=== PATIENT | male | born 1935 | race Caucasian/White ===

== ENCOUNTER → 2016-03-24 | Outpatient (CLI) | payer OTHER ==
[~2016-03-24] MED LIST: BIOFTAB30; CHOL100040; CLB/200 PO; IRON; LEVO50TA PO; MULT-506 PO; TAMS0.4C59 PO; [UNRECOGNIZED DRUG - CODE] PO
[2016-03-24 12:21] LABS: BASO % 0.9 %; BASO ABS # 0.05 K/uL (0-0.2); COMPLETE YES; EOS % 1.3 %; HEMATOCRIT 43.9 % (42-52); IG% 0.2 %; LYMPH % 26.2 %; LYMPH ABS # 1.46 K/uL (1.2-3.4); MEAN CELL VOLUME 92.8 fL (80-100); MEAN CORPUSCULAR HEMOGLOBIN 31.9 pg (25-34); MEAN CORPUSCULAR HGB CONC 34.4 g/dl (32-36); MEAN PLATELET VOLUME 9.6 fL (7.4-10.4); MONO % 8.3 %; NEUT % 63.1 %; PLATELET COUNT 256 K/uL (130-400); RED BLOOD COUNT 4.73 M/uL (4.7-6.1); WHITE BLOOD COUNT 5.57 K/uL (4.8-10.8)
[2016-03-24 12:48] LABS: ALT/SGPT 20 U/L (12-78); AST/SGOT 15 U/L (15-37); BLOOD UREA NITROGEN 20 mg/dl (7-18); BUN/CREATININE RATIO 16.3 (10-20); CALCIUM 9.2 mg/dl (8.5-10.1); CARBON DIOXIDE 29 mmol/L (21-32); CHLORIDE 103 mmol/L (98-107); GLUCOSE 89 mg/dl (70-99); POTASSIUM 4.2 mmol/L (3.5-5.1); SODIUM 139 mmol/L (136-145)
[2016-03-24 13:00] LABS: ALKALINE PHOSPHATASE 70 U/L (45-117); TOTAL IRON BINDING CAPACITY 339 mcg/dl (250-450)
[2016-03-24 14:14] LABS: LYME DISEASE AB IGG NEG (NEG)
[2016-03-24 14:15] LABS: LYME DISEASE AB IGM NEG (NEG)
--- NOTE | 2016-03-31 08:47 | CODING QUERY MEDICAL NECESSITY ---
SUPPORTING DIAGNOSIS NEEDED A supporting diagnosis is required for the test/procedure performed on this patient in order for us to be reimbursed by the patient's insurance. Please provide a supporting diagnosis for the following test/procedure listed below next to the test name along with your signature. *If there is no additional diagnosis for this patient that would support the following test/procedure please document that below next to the test/procedure. Test(s)/Procedure(s) that require a supporting diagnosis: DOS 03/24 * Vitamin B12 DIAGNOSIS: * Iron DIAGNOSIS: Provider Signature: Date: Thank you Bianca Aldridge [facility] Information Management Once completed, please kindly fax back to [phone] For questions please call [phone]
== END | disposition home or self-care (01) ==
LOC: C.LAB 10:54
PROVIDERS: ATTEND Family Medicine
DX: R53.83 Other fatigue (principal); D51.9 Vitamin B12 deficiency anemia, unspecified; D50.9 Iron deficiency anemia, unspecified

== ENCOUNTER → 2016-04-13 | Outpatient (CLI) | payer OTHER | END | disposition home or self-care (01) | LOC: C.LABSPEC 15:03 | PROVIDERS: ATTEND Family Medicine | DX: N39.0 Urinary tract infection, site not specified (principal) ==

== ENCOUNTER → 2016-04-16 | Outpatient (CLI) | payer OTHER ==
--- NOTE | 2016-04-16 10:43 | DIAGNOSTIC IMAGING REPORT ---
KUB CLINICAL HISTORY: Urethritis. Hematuria. FINDINGS: 2 AP supine abdominal radiographs are correlated with abdominal CT dated 01/08/2007. There is a nonobstructed abdominal bowel gas pattern. No evidence of intraperitoneal free air is seen on these supine views. There is moderate colonic fecal retention. There is no radiographic evidence of nephrolithiasis. Large pelvic phleboliths are similar to previous. A surgical clip is noted in the right lower quadrant. The skeletal structures are osteopenic. There is moderate lumbosacral spondylosis. IMPRESSION: 1. There is no radiographic evidence of nephrolithiasis. 2. Nonobstructed abdominal bowel gas pattern noting moderate colonic fecal retention. Electronically signed by: José Miguel Corona M.D. 04/16/2016 10:41 AM Dictated Date/Time: 04/16/2016 10:40 AM
--- NOTE | 2016-04-16 11:01 | DIAGNOSTIC IMAGING REPORT ---
RENAL ULTRASOUND HISTORY: URETHRITIS; HEMATURIA, PT WENT TO RAD FIRST COMPARISON: KUB 04/16/2016. Abdomen and pelvis CT 01/08/2007. FINDINGS: Right kidney: 10.2 cm. No hydronephrosis. Normal corticomedullary differentiation. Mild cortical thinning. Left kidney: 10.9 cm. No hydronephrosis. Normal corticomedullary differentiation. Mild cortical thinning. Bladder: No bladder wall thickening. The prostate is mildly enlarged. IMPRESSION: Mild bilateral cortical renal thinning which is likely age-related. Otherwise, normal renal ultrasound Electronically signed by: Bo Juárez M.D. 04/16/2016 11:00 AM Dictated Date/Time: 04/16/2016 10:58 AM
== END | disposition home or self-care (01) ==
LOC: C.ULTR 10:02
PROVIDERS: ATTEND Family Medicine
DX: N34.2 Other urethritis (principal); R31.9 Hematuria, unspecified; K59.00 Constipation, unspecified

== ENCOUNTER → 2016-07-31 | Outpatient (CLI) | payer OTHER ==
[~2016-07-31] MED LIST changes: -IRON; -TAMS0.4C59 PO
[2016-07-31 09:42] LABS: BASO % 1.1 %; BASO ABS # 0.06 K/uL (0-0.2); COMPLETE YES; HEMATOCRIT 42.6 % (42-52); IG% 0.4 %; LYMPH % 26.1 %; LYMPH ABS # 1.43 K/uL (1.2-3.4); MEAN CELL VOLUME 94.9 fL (80-100); MEAN CORPUSCULAR HGB CONC 32.6 g/dl (32-36); MEAN PLATELET VOLUME 9.3 fL (7.4-10.4); MONO % 6.2 %; NEUT % 64.2 %; PLATELET COUNT 288 K/uL (130-400); RED BLOOD COUNT 4.49 M/uL (4.7-6.1); WHITE BLOOD COUNT 5.48 K/uL (4.8-10.8)
[2016-07-31 09:54] LABS: ALT/SGPT 24 U/L (12-78); AST/SGOT 17 U/L (15-37); BLOOD UREA NITROGEN 17 mg/dl (7-18); BUN/CREATININE RATIO 13.2 (10-20); CARBON DIOXIDE 29 mmol/L (21-32); CHLORIDE 106 mmol/L (98-107); CHOLESTEROL 196 mg/dl (0-200); GLUCOSE 89 mg/dl (70-99); POTASSIUM 4.1 mmol/L (3.5-5.1); SODIUM 141 mmol/L (136-145); TRIGLYCERIDES 138 mg/dl (0-150); URIC ACID 7.1 mg/dl (2.6-7.2); VERY LOW DENSITY LIPOPROT CALC 28 mg/dl
[2016-07-31 09:58] LABS: ESTIMATED AVERAGE GLUCOSE 103 mg/dl; HA1C FLAG Normal (Normal)
[2016-07-31 10:03] LABS: ALB/GLOB RATIO 1.1 (0.9-2); ALKALINE PHOSPHATASE 73 U/L (45-117); CHOLESTEROL/HDL RATIO 3.8; HDL CHOLESTEROL 51 mg/dl; LDL CHOLESTEROL CALCULATED 117 mg/dl; TOTAL IRON BINDING CAPACITY 331 mcg/dl (250-450)
[2016-07-31 10:06] LABS: CALCIUM 9.4 mg/dl (8.5-10.1)
== END | disposition home or self-care (01) ==
LOC: C.LAB 08:15
PROVIDERS: ATTEND Family Medicine
DX: R73.09 Other abnormal glucose (principal); E55.9 Vitamin D deficiency, unspecified; D51.9 Vitamin B12 deficiency anemia, unspecified; E78.9 Disorder of lipoprotein metabolism, unspecified; R53.83 Other fatigue; N40.0 Benign prostatic hyperplasia without lower urinary tract symptoms

== ENCOUNTER → 2017-06-03 | Outpatient (CLI) | payer OTHER ==
[2017-06-03 09:34] LABS: BASO % 0.9 %; BASO ABS # 0.05 K/uL (0-0.2); EOS % 1.8 %; HEMATOCRIT 38.6 % (42-52); HEMOGLOBIN 12.9 g/dL (14.0-18.0); IG# 0.01 K/uL (0.00-0.02); LYMPH ABS # 1.43 K/uL (1.2-3.4); MEAN CELL VOLUME 90.2 fL (80-100); MEAN CORPUSCULAR HEMOGLOBIN 30.1 pg (25-34); MEAN CORPUSCULAR HGB CONC 33.4 g/dl (32-36); MEAN PLATELET VOLUME 9.1 fL (7.4-10.4); MONO % 8.7 %; MONO ABS # 0.48 K/uL (0.11-0.59); NEUT % 62.4 %; NEUT ABS # 3.43 K/uL (1.4-6.5); PLATELET COUNT 280 K/uL (130-400); RED CELL DISTRIBUTION WIDTH CV 14.5 % (11.5-14.5); RED CELL DISTRIBUTION WIDTH SD 47.4 fL (36.4-46.3)
[2017-06-03 09:59] LABS: ALBUMIN 3.5 gm/dl (3.4-5.0); ALT/SGPT 23 U/L (12-78); AST/SGOT 17 U/L (15-37); BLOOD UREA NITROGEN 14 mg/dl (7-18); CALCIUM 8.8 mg/dl (8.5-10.1); CARBON DIOXIDE 28 mmol/L (21-32); CHOLESTEROL 178 mg/dl (0-200); CREATININE 1.09 mg/dl (0.60-1.40); GLUCOSE 89 mg/dl (70-99); POTASSIUM 3.7 mmol/L (3.5-5.1); SODIUM 138 mmol/L (136-145); URIC ACID 6.3 mg/dl (2.6-7.2)
[2017-06-03 10:03] LABS: HEMOGLOBIN A1C 5.2 % (4.5-5.6)
[2017-06-03 10:08] LABS: ALKALINE PHOSPHATASE 72 U/L (45-117); LDL CHOLESTEROL CALCULATED 103 mg/dl; TRANSFERRIN 274 mg/dl (200-360)
== END | disposition home or self-care (01) ==
LOC: C.LAB 08:02
PROVIDERS: ATTEND Family Medicine
DX: E88.81 Metabolic syndrome and other insulin resistance (principal); E55.9 Vitamin D deficiency, unspecified; D51.9 Vitamin B12 deficiency anemia, unspecified; E78.9 Disorder of lipoprotein metabolism, unspecified; R53.83 Other fatigue

== ENCOUNTER 2019-07-10 10:25 | Inpatient (IN) ==
--- NOTE | 2019-07-10 10:50 | Emergency Department Note ---
Impression & Plan Pulmonary air embolism, DELANEY (dyspnea on exertion) ED Provider Note NAME: CHRISTINA BRICE JR AGE: 84 SEX: M : 1935 ARRIVES VIA: Walk-In INFORMANT: Patient, ED PROVIDER(S): Bird Banks MD Chief Complaint: Shortness of breath HPI: Patient does relate that he has shortness of breath, which began yesterday. He described it as exertional while he was using a push mower. 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 This did dissipate after some time but it did take a while. The patient is a prior history of PE and was referred here by his PCP today. Patient denies any cough, leg swelling. Patient does not present with c ough, fevers, chills, coronavirus contacts, coronavirus testing, or recent travel. The patient has worked as a volunteer here in the emergency department but has not done so since the restrictions. This has been greater than 2 weeks. The patient states he did have a little bit of burning in his chest. Nonradiating. Not exertional. The patient denies any weight gain or leg swelling. The patient does not take any current blood thinners at this time. Non-smoker and never smoker. ROS: See HPI for pertinent positives and negatives. A total of 10 systems were reviewed and otherwise negative. Past medical history: See below Surgical history: See below Social history: See below Physical Exam: GENERAL: Well appearing, well nourished, NAD, non-toxic. Wearing a mask. EYE EXAM: Normal conjunctiva. PERRL, no anisocoria and EOM's grossly intact w/o pain. NECK: Supple, no nuchal rigidity, no adenopathy, non-tender. No signs of meningismus. LUNGS: Clear to auscultation. Normal chest wall mechanics. HEART: NSR, no MRG. ABDOMEN: Abdomen soft, non-tender, normo-active bowel sounds, no masses, no rebound or guarding. BACK: No CVA TTP. SKIN: No rashes and no bruising. UPPER EXTREMITIES: Upper extremities are grossly normal. LOWER EXTREMITIES: Grossly normal, no edema. NEURO EXAM: A&O x3, cranial nerves II-XII grossly intact, normal speech, moves all 4 extremities on command w/o issue. Differential diagnoses: Reactive airway disease, pneumonia, pneumothorax, COPD, CHF, infections, cardiac ischemia, pulmonary embolism, musculoskeletal, gastrointestinal, as well as other pathologies. Course: Patient was seen and evaluated the bedside. A full history and physical exam was performed. EKG: Sinus with sinus arrhythmia, rate of 63, wide QRS, left axis deviation, T WI in lead III potentially V3 without overt ST changes at this time. Imaging Studies: Radiology results as stated below per my review in the radiologist's interpretation: CT angio chest PE protocol CLINICAL HISTORY: 84 years-old Male presenting with shortness of breath, clinical concern for pulmonary embolus. TECHNIQUE: Multidetector CT angiography of the chest was performed after administration of intravenous contrast. 3-D volumetric and/or maximum intensity projection (MIP) images were subsequently reconstructed for review. IV contrast: 120 mL of Optiray 320. One or more dose lowering techniques were used consistent with the principles of ALARA (as low as reasonably achievable), including autom atic exposure control, mA or kV adjustment to individual patient size, and/or use of iterative reconstruction. COMPARISON: 05/16/2007. CT DOSE (mGy.cm): The estimated cumulative dose is 541.10 mGycm. FINDINGS: Protection Agent topogram: Unremarkable. Pulmonary vasculature: The study is adequate for assessment of the pulmonary vascular tree. Extensive acute pulmonary emboli in segmental and subsegmental pulmonary arteries involving all 5 lobes. Main pulmonary artery is not enlarged. No flattening of the interventricular septum. No intracardiac filling defect. No reflux of contrast into the hepatic veins. Remaining chest: Soft tissues: Normal thyroid and thoracic inlet. No axillary, supraclavicular, mediastinal, or hilar lymphadenopathy. Atherosclerosis of the aorta. Multichamber enlargement of the heart. Coronary artery and aortic valve calcification. No pericardial or pleural effusion. Upper abdomen normal. Lungs and airways: No pneumothorax. Mild diffuse bronchial wall thickening. Pulmonary arteries are not significantly enlarged relative to adjacent bronchi. No interlobular septal thickening. Minimal dependent changes likely atelectasis. Solid polygonal peripheral 5 mm nodule in the right middle lobe, unchanged. No other focal infiltrate. Musculoskeletal: Degenerative changes of the spine. IMPRESSION: 1. Extensive acute pulmonary emboli throughout all 5 lobes involving segmental and subsegmental pulmonary arteries. No CT evidence of right heart strain or pulmonary infarct. The report will be called/faxed according to standard departmental protocol for a critical finding. ACT 112: Negative or not required by law. Electronically signed by: Delroy Walsh M.D. 07/10/2019 11:47 AM Dictated: 07/10/19 1142 Transcribed: 07/10/19 1142 XR chest 1V portable HISTORY: 84 years-old Male Dyspnea acute shortness of breath COMPARISON: CTA of the chest of same day TECHNIQUE: Portable AP view of the chest FINDINGS: Cardiac silhouette is enlarged, unchanged. No pneumothorax, pleural effusion, overt pulmonary edema or airspace consolidation typical for pneumonia. Mild left hemidiaphragmatic elevation. Degenerative changes of the spine. Calcified plaque of the thoracic aortic arch. IMPRESSION: Cardiomegaly without acute process. ACT 112: Negative or not required by law. The above report was generated using voice recognition software. It may contain grammatical, syntax or spelling errors. Electronically signed by: Sam Suero M.D. 07/10/2019 11:46 AM Dictated: 07/10/19 1145 Transcribed: 07/10/19 1145 Cardiac monitoring: An order was placed for continuous cardiac monitoring. The monitor shows a rate of 71 with sinus rhythm. MDM: Patient does present with concern for exertional dyspnea. Patient does not present with cough, fevers, chills, coronavirus contacts, coronavirus testing, or recent travel. Patient did have blood work completed along with [id number] BMP and CT of the chest. Patient also did have a troponin obtaine d along with EKG. Patient does not have any symptoms at rest. No active chest pain at this time. Patient has normal white count trace anemia. The patient's kidney function is unremarkable. Patient's troponin is 0.025. Patient's chest x-ray shows cardiomegaly without acute process. Patient CT angiography does show that the patient does have extensive pulmonary emboli without any obvious right-sided heart strain. I did update the patient. Patient is asymptomatic currently at rest. The patient was subsequently admitted to the medicine service. I did speak with Cindi BELTRÁN and the patient will be admitted on under Dr. Ankur Torres physician group hospitalist. Critical Care: I have personally spent 70 minutes of critical care time in direct management of this patient. This includes bedside care, interpretation of diagnostic studies, and testing, discussion with consultants, patient, and family members, and other require inpatient management activities. This 70 minutes is in excess of all separately billable procedures. Past Med/Surg History Medical History Anemia IRON INFUSION EVERY 2 MONTHS Arthritis (Acute) Blood dyscrasia (Acute) HHT Cancer MOHS PROCEDURE ON NOSE Hypothyroidism Psoriasis (Acute) Psoriatic arthritis Pulmonary embolism (Acute) 2010? Synovial cyst (Acute) Thrombophlebitis (Acute) Surgical History History of adenoidectomy History of colonoscopy History of herniorrhaphy RT/LEFT INGUINAL HERNIA History of tonsillectomy History of tooth extraction Social History Preferred Language: Jordanian Communication Ability: Effective Baggage Inspector Required: No Beliefs That Will Affect Care: None Current Living Situation: Family Current Living Situation Comment: BROTHER LIVES WITH PT Feels Safe at Home: Yes Smoking Status: Never smoker Second Hand Exposure: No ; Hx Alcohol Use: Yes Alcohol type: wine Hx Substance Use: No Allergies Allergies Allergy/AdvReac Type Severity Reaction Status Date / Time No Known Allergies Allergy Verified 07/10/19 12:17 Home Meds Home Medications Medication Instructions Recorded Confirmed Proaxil 2 cap PO DAILY 01/05/18 07/10/19 Vitamin D3 2,000 unit PO DAILY #0 01/05/18 07/10/19 celecoxib [Celebrex] 200 mg PO BID 01/05/18 07/10/19 ferrous sulfate [iron] 325 mg PO DAILY 01/05/18 07/10/19 glucosamine-chondroitin 1 tab PO BID 01/05/18 07/10/19 levothyroxine [Synthroid] 125 mcg PO QAM 01/05/18 07/10/19 multivitamin 1 tab PO DAILY 01/05/18 07/10/19 iron heme polypeptide [Proferrin 12 mg PO DAILY 02/28/19 07/10/19 ES] Results & Data (ED) Vital Signs Vital Signs - 24 hr 07/10/19 10:35 Temperature 36.8 C Temperature Source Oral Pulse Rate 71 Respiratory Rate 16 Blood Pressure 148/74 H Blood Pressure Mean 98 Pulse Oximetry 94 Oxygen Delivery Method Room Air Sepsis Recent Fever Within 48 Hours No Sepsis New/Unexplained Change in Mental Status No Sepsis Action Taken by Nursing No Action Required Home Medications Current Medication List: was personally reviewed by me Laboratory Data Attestation: I reviewed the patient's lab results. Result diagrams: 07/10/19 11:00 07/10/19 11:00 Lab Results 07/10/19 07/10/19 07/10/19 Range/Units 11:00 11:00 11:00 WBC 6.87 (4.8-10.8) K/uL RBC 4.51 L (4.7-6.1) M/uL Hgb 12.3 L (14.0-18.0) g/dL POC Hgb (14.0-18.0) g/dl Hct 38.6 L (42-52) % POC Hct (42-52) % MCV 85.6 (80-100) fL MCH 27.3 (25-34) pg MCHC 31.9 L (32-36) g/dL RDW Std Deviation 52.6 H (36.4-46.3) fL RDW Coeff of Tatiana 16.8 H (11.5-14.5) % Plt Count 230 (130-400) K/uL MPV 9.0 (7.4-10.4) fL Immature Gran % (Auto) 0.1 % Neut % (Auto) 70.8 % Lymph % (Auto) 19.5 % [place] % (Auto) 8.4 % Eos % (Auto) 0.6 % Baso % (Auto) 0.6 % Immature Gran # (Auto) 0.01 (0.00-0.02) K/uL Neut # (Auto) 4.86 (1.4-6.5) K/uL Lymph # (Auto) 1.34 (1.2-3.4) K/uL [place] # (Auto) 0.58 (0.11-0.59) K/uL Eos # (Auto) 0.04 (0-0.5) K/uL Baso # (Auto) 0.04 (0-0.2) K/uL PT 10.6 (9.0-12.0) Seconds INR 1.0 (0.9-1.1) APTT 28.4 (21.0-31.0) Seconds PTT Ratio 1.0 POC Sodium (135-144) mmol/L Sodium 137 (136-145) mmol/L POC Potassium (3.3-5.0) mmol/L Potassium 4.2 (3.5-5.1) mmol/L POC Chloride (101-112) mmol/L Chloride 106 (98-107) mmol/L Carbon Dioxide 25 (21-32) mmol/L POC Total CO2 (24-31) mmol/L Anion Gap 6.0 (3-11) POC Anion Gap (16-25) mmol/L POC BUN (7-18) mg/dl BUN 19 H (7-18) mg/dl Creatinine 1.31 (0.6-1.4) mg/dl POC Creatinine (0.6-1.3) mg/dl Est Cr Clr Drug Dosing 45.3 ml/min Est GFR ( Amer) 57.1 Est GFR (Non-Af Amer) 49.3 BUN/Creatinine Ratio 14.1 (10-20) Glucose 99 (70-99) mg/dl POC Glucose (other) (70-99) mg/dl Calcium 8.8 (8.5-10.1) mg/dl POC Ioniz Calcium Whit (1.12-1.32) mmol/l Magnesium 2.1 (1.8-2.4) mg/dl Total Bilirubin 0.4 (0.2-1) mg/dl AST 16 (15-37) U/L ALT 19 (12-78) U/L Alkaline Phosphatase 81 (45-117) U/L Troponin I 0.025 (0-0.045) ng/ml NT-Pro-B Natriuret Pep 219 (0-1800) pg/ml Total Protein 7.5 (6.4-8.2) gm/dl Albumin 3.7 (3.4-5.0) gm/dl Globulin 3.8 (2.5-4.0) gm/dl Albumin/Globulin Ratio 1.0 (0.9-2) /01/18 Range/Units 11:06 WBC (4.8-10.8) K/uL RBC (4.7-6.1) M/uL Hgb (14.0-18.0) g/dL POC Hgb 13.6 L (14.0-18.0) g/dl Hct (42-52) % POC Hct 40 L (42-52) % MCV (80-100) fL MCH (25-34) pg MCHC (32-36) g/dL RDW Std Deviation (36.4-46.3) fL RDW Coeff of Tatiana (11.5-14.5) % Plt Count (130-400) K/uL MPV (7.4-10.4) fL Immature Gran % (Auto) % Neut % (Auto) % Lymph % (Auto) % [place] % (Auto) % Eos % (Auto) % Baso % (Auto) % Immature Gran # (Auto) (0.00-0.02) K/uL Neut # (Auto) (1.4-6.5) K/uL Lymph # (Auto) (1.2-3.4) K/uL [place] # (Auto) (0.11-0.59) K/uL Eos # (Auto) (0-0.5) K/uL Baso # (Auto) (0-0.2) K/uL PT (9.0-12.0) Seconds INR (0.9-1.1) APTT (21.0-31.0) Seconds PTT Ratio POC Sodium 138 (135-144) mmol/L Sodium (136-145) mmol/L POC Potassium 4.4 (3.3-5.0) mmol/L Potassium (3.5-5.1) mmol/L POC Chloride 104 (101-112) mmol/L Chloride (98-107) mmol/L Carbon Dioxide (21-32) mmol/L POC Total CO2 23 L (24-31) mmol/L Anion Gap (3-11) POC Anion Gap 16.0 (16-25) mmol/L POC BUN 19 H (7-18) mg/dl BUN (7-18) mg/dl Creatinine (0.6-1.4) mg/dl POC Creatinine 1.3 (0.6-1.3) mg/dl Est Cr Clr Drug Dosing ml/min Est GFR ( Amer) Est GFR (Non-Af Amer) BUN/Creatinine Ratio (10-20) Glucose (70-99) mg/dl POC Glucose (other) 97 (70-99) mg/dl Calcium (8.5-10.1) mg/dl POC Ioniz Calcium Whit 1.22 (1.12-1.32) mmol/l Magnesium (1.8-2.4) mg/dl Total Bilirubin (0.2-1) mg/dl AST (15-37) U/L ALT (12-78) U/L Alkaline Phosphatase (45-117) U/L Troponin I (0-0.045) ng/ml NT-Pro-B Natriuret Pep (0-1800) pg/ml Total Protein (6.4-8.2) gm/dl Albumin (3.4-5.0) gm/dl Globulin (2.5-4.0) gm/dl Albumin/Globulin Ratio (0.9-2) Administered Medications Heparin Sodium/Dextrose (Heparin Sodium/Dextrose) 25,000 units in 500 mls @ 0.02 mls/hr IV .Q24H TODD; Protocol Stop: 08/09/19 11:59 Last Admin: 07/10/19 12:15 Dose: 1,400 units/hr, 28 mls/hr Documented by: [id number] Cosigned by: [id number] Ioversol (Optiray 320 125ml) 120 ml IV ONCE PRN PRN Reason: Interaction Checking Stop: 07/14/19 11:21 Last Admin: 07/10/19 11:23 Dose: 120 ml Documented by: [id number] Discontinued Medications Heparin Sodium/Dextrose () 1 ea IV ONE ONE; Protocol Stop: 07/10/19 12:01 Last Admin: 07/10/19 12:23 Dose: Not Given Documented by: [id number] Blood Pressure Blood Pressure Findings: Elevated blood pressure Blood Pressure Disposition: further management by hospitalist Discharge Plan Visit Data Chief Complaint: Shortness of Breath/Dyspnea Stated Complaint: SOB - DR REF ED Provider: Bird Banks Discharge Problem: Pulmonary air embolism, DELANEY (dyspnea on exertion) Forms Stand Alone Forms: My [facility] Predect Prescriptions Prescriptions: No Action Proferrin ES 12 mg Tablet 12 mg PO DAILY RF: 0 multivitamin Tablet 1 tab PO DAILY RF: 0 celecoxib [Celebrex] 200 mg Capsule 200 mg PO BID RF: 0 ferrous sulfate [iron] 325 mg (65 mg iron) Tablet 325 mg PO DAILY RF: 0 levothyroxine [Synthroid] 125 mcg Tablet 125 mcg PO QAM RF: 0 glucosamine-chondroitin 500-400 mg Tablet 1 tab PO BID RF: 0 Proaxil 2 cap PO DAILY RF: 0 Vitamin D3 2,000 unit PO DAILY Qty: 0 RF: 0 Discharge Problem: Pulmonary air embolism Qualifiers: Encounter type: initial encounter Qualified Code(s): T79.0XXA - Air embolism (traumatic), initial encounter
[2019-07-10 11:14] LABS: Basophils # (auto) 0.04 K/uL (0-0.2); Basophils % (auto) 0.6 %; Eosinophils # (auto) 0.04 K/uL (0-0.5); Eosinophils % (auto) 0.6 %; Hematocrit (blood only) 38.6 % (42-52); Hemoglobin 12.3 g/dL (14.0-18.0); Immature Granulocytes # (auto) 0.01 K/uL (0.00-0.02); Immature Granulocytes % (auto) 0.1 %; Lymphocytes # (auto) 1.34 K/uL (1.2-3.4); Lymphocytes % (auto) 19.5 %; Mean Corpuscular Hemoglobin 27.3 pg (25-34); Mean Corpuscular Hgb Conc 31.9 g/dL (32-36); Mean Corpuscular Volume 85.6 fL (80-100); Monocytes # (auto) 0.58 K/uL (0.11-0.59); Monocytes % (auto) 8.4 %; Neutrophils # (auto) 4.86 K/uL (1.4-6.5); Neutrophils % (auto) 70.8 %; Platelet Count 230 K/uL (130-400); RDW Coefficient of Variation 16.8 % (11.5-14.5); RDW Standard Deviation 52.6 fL (36.4-46.3); Red Blood Count 4.51 M/uL (4.7-6.1); White Blood Count 6.87 K/uL (4.8-10.8)
[2019-07-10 11:19] LABS: iSTAT Creatinine 1.3 mg/dl (0.6-1.3); iSTAT Hemoglobin 13.6 g/dl (14.0-18.0); iSTAT Ionized Calcium 1.22 mmol/l (1.12-1.32); iSTAT Potassium 4.4 mmol/L (3.3-5.0)
[2019-07-10] MEDS ORDERED: OPTIRAY 320 125ml IV PRN (11:22)
[2019-07-10 11:25] LABS: Partial Thromboplastin Time 28.4 Seconds (21.0-31.0); Prothrombin Time 10.6 Seconds (9.0-12.0)
[2019-07-10 11:31] LABS: Albumin Level 3.7 gm/dl (3.4-5.0); BUN Creatinine Ratio 14.1 (10-20); Calcium 8.8 mg/dl (8.5-10.1); Creatinine Clr Calc Pharmacy 45.3 ml/min; Est GFR (African American) 57.1; Est GFR (Non-African American) 49.3; Magnesium 2.1 mg/dl (1.8-2.4); Potassium 4.2 mmol/L (3.5-5.1)
[2019-07-10 11:36] LABS: Bilirubin,Total 0.4 mg/dl (0.2-1); Globulin 3.8 gm/dl (2.5-4.0); Total Protein 7.5 gm/dl (6.4-8.2); Troponin I 0.025 ng/ml (0-0.045)
--- NOTE | 2019-07-10 11:47 | XRay Report ---
XR chest 1V portable HISTORY: 84 years-old Male Dyspnea acute shortness of breath COMPARISON: CTA of the chest of same day TECHNIQUE: Portable AP view of the chest FINDINGS: Cardiac silhouette is enlarged, unchanged. No pneumothorax, pleural effusion, overt pulmonary edema o r airspace consolidation typical for pneumonia. Mild left hemidiaphragmatic elevation. Degenerative c hanges of the spine. Calcified plaque of the thoracic aortic arch. IMPRESSION: Cardiomegaly without acute process. ACT 112: Negative or not required by law. The above report was generated using voice recognition software. It may contain grammatical, syntax o r spelling errors. Electronically signed by: Sam Suero M.D. 07/10/2019 11:46 AM
--- NOTE | 2019-07-10 11:48 | CT Scan Report ---
CT angio chest PE protocol CLINICAL HISTORY: 84 years-old Male presenting with shortness of breath, clinical concern for pulmona ry embolus. TECHNIQUE: Multidetector CT angiography of the chest was performed after administration of intravenou s contrast. 3-D volumetric and/or maximum intensity projection (MIP) images were subsequently reconst ructed for review. IV contrast: 120 mL of Optiray 320. One or more dose lowering techniques were used consistent with the principles of ALARA (as low as reasonably achievable), including automatic expos ure control, mA or kV adjustment to individual patient size, and/or use of iterative reconstruction. COMPARISON: 05/16/2007. CT DOSE (mGy.cm): The estimated cumulative dose is 541.10 mGycm. FINDINGS: Rn Neurosurgical topogram: Unremarkable. Pulmonary vasculature: The study is adequate for assessment of the pulmonary vascular tree. Extensive acute pulmonary emboli in segmental and subsegmental pulmonary arteries involving all 5 lobes. Main pulmonary artery is not enlarged. No flattening of the interventricular septum. No intracardiac filling defect. No reflux of contrast into the hepatic veins. Remaining chest: Soft tissues: Normal thyroid and thoracic inlet. No axillary, supraclavicular, mediastinal, or hilar lymphadenopathy. Atherosclerosis of the aorta. Multichamber enlargement of the heart. Coronary artery and aortic valve calcification. No pericardial or pleural effusion. Upper abdomen normal. Lungs and airways: No pneumothorax. Mild diffuse bronchial wall thickening. Pulmonary arteries are no t significantly enlarged relative to adjacent bronchi. No interlobular septal thickening. Minimal dep endent changes likely atelectasis. Solid polygonal peripheral 5 mm nodule in the right middle lobe, u nchanged. No other focal infiltrate. Musculoskeletal: Degenerative changes of the spine. IMPRESSION: 1. Extensive acute pulmonary emboli throughout all 5 lobes involving segmental and subsegmental pulm onary arteries. No CT evidence of right heart strain or pulmonary infarct. The report will be called/faxed according to standard departmental protocol for a critical finding. ACT 112: Negative or not required by law. Electronically signed by: Delroy Walsh M.D. 07/10/2019 11:47 AM
[2019-07-10] MEDS ORDERED: Heparin IV Standard *NO* Bolus IV ONE (12:00)
[2019-07-10] MEDS: HEPARIN SODIUM/DEXTROSE 25,000 UNITS/500 ML BAG IV SCH (12:15)
--- NOTE | 2019-07-10 13:03 | History & Physical Report ---
Date of Service July 10, 2019 Assessment & Plan (1) Pulmonary air embolism: Admit telemetry CTA showing extensive PEs in all five lobes segmental and subsegmental Will continue heparin started in ED - will need to transition to po - Eliquis vs Xeralto - $33 per month. Patient was on Coumadin when last diagnosed but hopefully we can use a newer agent Echo Patient does not think he had a hypercoagulability workup with previous clotting episode. May want to consider this in follow up with pcp (2) Acute electrocardiogram changes: Last EKG on file is from 2012. Current EKG does show some changes in the septal leads with Q waves. Will order echo. Previous echo 10/2018 showed LVEF 55-60%, no wma Trend troponin, initial is negative. No overt ischemic symptoms. Patient was comfortable without sob or chest pain at the time of my assessment. 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 Cortez presented to the ED for sob. He noticed that while he was mowing his lawn yesterday it took him quite a while to recover from a bout of sob. He does not have any other symptoms and denies aches, fevers, chills, cough, chest pain, palpitations, lowe extremity edema, dizziness, n/v/d, weakness or joint pain, dysuria or hesitancy, or skin changes beyond his chronic psoriasis. He has not had any sick contacts and has not been around other people other than his brother whom he lives with. CTA in the ED showed extensive PE throughout all five lobes. He has a history of PE with the previous around 2011. It had a similar presentation, he became very sob while climbing stairs which lead him to be evaluated. He had no precipitating factors at that time either. 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 He has never had GI bleeds with this. Pmhx: psoriasis, hypothyroid, hereditary hemorrhagic telangiectasias Social: , lives with brother on a farm, retired, never smoker, rare glass of wine Family: HHT in father and daughter Primary Care Provider: Nathen Becerra MD Allergies Allergy/AdvReac Type Severity Reaction Status Date / Time No Known Allergies Allergy Verified 07/10/19 12:17 Home Medications Home Medications Medication Instructions Recorded Confirmed Type Proaxil 2 cap PO DAILY 01/05/18 07/10/19 History Vitamin D3 2,000 unit PO DAILY #0 01/05/18 07/10/19 History celecoxib [Celebrex] 200 mg PO BID 01/05/18 07/10/19 History ferrous sulfate [iron] 325 mg PO DAILY 01/05/18 07/10/19 History glucosamine-chondroitin 1 tab PO BID 01/05/18 07/10/19 History levothyroxine [Synthroid] 125 mcg PO QAM 01/05/18 07/10/19 History multivitamin 1 tab PO DAILY 01/05/18 07/10/19 History iron heme polypeptide [Proferrin 12 mg PO DAILY 02/28/19 07/10/19 History ES] Past Med/Surg History Social History Preferred Language: Divehi Communication Ability: Effective Parking Enforcement Manager Required: No Beliefs That Will Affect Care: None Current Living Situation: Family Current Living Situation Comment: BROTHER LIVES WITH PT Other Information That Helps Us Care for You: No Feels Safe at Home: Yes Safety Concerns: Feels Safe At This Time Smoking Status: Never smoker Second Hand Exposure: No ; Hx Alcohol Use: Yes Alcohol type: wine Hx Substance Use: No Review of Systems Review of Systems: All systems reviewed & are unremarkable except as noted in HPI & below Physical Exam Physical Exam: General: no distress Eyes: normal inspection, PERLL Respiratory: chest non tender, clear to auscultation, normal breath sounds, no respiratory distress, no accessory muscle use Cardiac: regular rate and rhythm, no rub or gallop, no murmur, no edema, no jvd GI/: active bowel sounds, no abd pain or tenderness, soft, non distended Extremities: normal range of motion, normal strength, non tender Neuro:oriented x 3, moves all extremities Psych: alert, normal mood and affect Skin: normal color, dry, psoriatic rash lower extremities bilaterally Results & Data Results & Data ([facility]) Vital Signs (Past 12 Hours) Vital Signs Temp Pulse Resp BP Pulse Ox 07/10/19 10:35 36.8 C 71 16 148/74 H 94 Code Status & VTE Plan Code Status DNR VTE Prophylaxis Plan VTE Prophylaxis will be ordered: Yes Supervising Physician Co-Signing Physician Notes Patient seen and examined with Cindi BELTRÁN. I agree with her exam findings, review of systems, assessment and plan. I personally reviewed the lab work and imaging as well. patient feeling well, only complaint is the dyspnea on exertion that he experienced yesterday. 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 He has been very busy inside his home recently with remodeling his bathroom and kitchen. he had not noticed any shortness of breath until yesterday afternoon when he was mowing his grass and had to stop and sit against the fence. he recalls similar symptoms in 2011 when he had a pulmonary embolism. in the ED he had a CTA chest that showed bilateral, extensive PE. vitals stable. started on heparin drip. - Bilateral PE, unprovoked second episode in his lifetime, will now need indefinite anticoagulation use heparin drip overnight plan for NOAC tomorrow, can likely go home tomorrow afternoon PG Care Time/CCT Total # of Minutes Spent Total Time Spent with Patient: Total time spent is greater than 50% in coordination of care (as documented) at patient's floor/unit and/or counseling patient: Coding Level of Care Code 55606 Initial Inpt Care Lvl 3 Diagnoses Pulmonary air embolism T79.0XXA Encounter type: initial encounter Acute electrocardiogram changes R94.31 Hereditary hemorrhagic telangiectasia I78.0 Psoriasis L40.9 Psoriatic arthritis L40.50 DVT prophylaxis Z29.9 (1) Pulmonary air embolism Encounter type: initial encounter Qualified Code(s): T79.0XXA - Air embolism (traumatic), initial encounter
[2019-07-10] MEDS ORDERED: ACETAMINOPHEN 325 MG TAB PO PRN (14:22)
[2019-07-10] MEDS: ACETAMINOPHEN 500 MG TAB PO SCH ×2 (15:01→20:55)
--- NOTE | 2019-07-10 17:20 | XCELERA ---
[id number]
[2019-07-10 18:33] LABS: Partial Thromboplastin Ratio 2.7
[2019-07-10 18:39] LABS: Partial Thromboplastin Time 74.9 Seconds (21.0-31.0)
--- NOTE | 2019-07-10 22:43 | Electrocardiogram Report ---
Test Reason : Blood Pressure : / mmHG Vent. Rate : 063 BPM Atrial Rate : 063 BPM P-R Int : 180 ms QRS Dur : 128 ms QT Int : 436 ms P-R-T Axes : 056 -44 007 degrees QTc Int : 446 ms Normal sinus rhythm with sinus arrhythmia Left axis deviation Left ventricular hypertrophy with QRS widening Cannot rule out Septal infarct , age undetermined Abnormal ECG When compared with ECG of 26-MAY-2012 15:37, Questionable change in QRS duration Minimal criteria for Septal infarct are now Present Confirmed by Israel Brown ([id number]) on 07/10/2019 10:43:39 PM Referred By: Nathen Becerra Confirmed By:Israel Brown
[2019-07-11 01:00] LABS: Hematocrit (blood only) 36.4 % (42-52); Hemoglobin 11.5 g/dL (14.0-18.0); Mean Corpuscular Hemoglobin 26.9 pg (25-34); Mean Corpuscular Hgb Conc 31.6 g/dL (32-36); Mean Corpuscular Volume 85.2 fL (80-100); Mean Platelet Volume 8.6 fL (7.4-10.4); Platelet Count 232 K/uL (130-400); RDW Standard Deviation 52.8 fL (36.4-46.3); Red Blood Count 4.27 M/uL (4.7-6.1); White Blood Count 4.97 K/uL (4.8-10.8)
[2019-07-11 01:25] LABS: Partial Thromboplastin Ratio 3.6
[2019-07-11] MEDS: ACETAMINOPHEN 500 MG TAB PO SCH (06:30)
[2019-07-11] MEDS ORDERED: LEVOTHYROXINE SODIUM 125 MCG TABLET PO SCH (06:30)
[2019-07-11] MEDS ORDERED: FERROUS SULFATE 325 MG TAB PO SCH (07:30)
[2019-07-11] MEDS: HEPARIN SODIUM/DEXTROSE 25,000 UNITS/500 ML BAG IV SCH (08:06)
[2019-07-11] MEDS ORDERED: RIVAROXABAN 15 MG TAB PO SCH ×2 (09:00→21:00)
[2019-07-11] MEDS ORDERED: APIXABAN 5 MG TABLET PO SCH (09:00)
[2019-07-11] MEDS ORDERED: CHOLECALCIFEROL 1,000 UNITS 25 MCG TAB PO SCH (09:00)
[2019-07-11] MEDS ORDERED: MULTIVITAMIN TAB PO SCH (09:00)
--- NOTE | 2019-07-11 15:51 | Discharge Summary ---
Date of Service July 11, 2019 Admission HPI Per Admitting Provider Mr. Cortez presented to the ED for sob. He noticed that while he was mowing his lawn yesterday it took him quite a while to recover from a bout of sob. He does not have any other symptoms and denies aches, fevers, chills, cough, chest pain, palpitations, lowe extremity edema, dizziness, n/v/d, weakness or joint pain, dysuria or hesitancy, or skin changes beyond his chronic psoriasis. He has not had any sick contacts and has not been around other people other than his brother whom he lives with. CTA in the ED showed extensive PE throughout all five lobes. He has a history of PE with the previous around 2011. It had a similar presentation, he became very sob while climbing stairs which lead him to be evaluated. He had no precipitating factors at that time either. 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 He has never had GI bleeds with this. Pmhx: psoriasis, hypothyroid, hereditary hemorrhagic telangiectasias Social: , lives with brother on a farm, retired, never smoker, rare glass of wine Family: HHT in father and daughter Principal Diagnosis Bilateral pulmonary emboli Discharge Exam Constitutional WD/WN, vitals as above Eyes PERRL, conjunctivae normal, anicteric sclerae ENMT external ear and nose normal, oropharynx normal Neck trachea midline, no thyromegaly Respiratory normal respiratory effort, lungs clear to auscultation Cardiovascular RRR, no murmur, no edema Gastrointestinal (Abdomen) normal bowel sounds, soft, nontender, no hepatosplenomegaly Musculoskeletal no cyanosis or clubbing, extremities motor strength 5/5 Skin no rashes, warm and dry Neurologic patellar DTR's 2+ bilat, sensation intact and PERRL, EOMI, accommodation nl, no face palsy, no dysarthria Psychiatric A+Ox3, euthymic affect Lymphatic no cervical or axillary lymphadenopathy Discharge Data Allergies Allergy/AdvReac Type Severity Reaction Status Date / Time No Known Allergies Allergy Verified 07/10/19 12:17 Consultations 07/10/19 12:08 ED Decision to Admit Stat 07/10/19 14:22 Consult Case Management - Discharge Planning Routine Ordered Studies 05/11/20 10:44 CT angio chest PE protocol Stat Hospital Course (1) Pulmonary embolism: bilateral pulmonary emboli unprovoked no hypoxia, only symptom is some dyspnea on exertion he is quite active, 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 Current EKG does show some changes in the septal leads with Q waves Previous echo 10/2018 showed LVEF 55-60%, no wma Trend troponin, initial is negative. No overt ischemic symptoms. Patient was comfortable without sob or chest pain at the time of my assessment. 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, no history of GI bleed Will need to watch carefully with initiation of anticoagulation Unfortunately, patient will likely need to stay on anticoagulation therapy indefinitely (4) Psoriasis: (5) Psoriatic arthritis: continue Celebrex as it provides him comfort Total Time Total Time Spent Total Time Spent (In Minutes): 33 minutes Total Time Includes: Examination of the Patient, Discharge Planning and Medication Reconciliation Discharge Plan Discharge Items Patient Disposition: Home - Self-Care Reason For Visit: PE Discharge Diagnosis: Bilateral pulmonary emboli Dyspnea on exertion Condition on Discharge: Good Goals: continue Xarelto indefinitely for full anticoagulation gradually increase activity as tolerated Activity: Resume your previous activity Driving/Machine Use: Resume 1 day after discharge Weightbearing: Full weightbearing Non-emergency contact: Primary Care Provider Call non-emergency contact if: you have any medication questions, your symptoms worsen and you have a fever Follow-up/Referrals: Nathen Becerra MD [Primary Care Provider] - 07/12/19 10:30 am (one week) Diet: Regular Addtl Attending Provider Instructions: Medications: - XARELTO: 15mg twice a day for 21 days then change to 20mg daily, will take this indefinitely Bilateral pulmonary emboli, causing shortness of breath on exertion unclear etiology as you are very active given that this is your second time having blood clots, you will need anticoagulation for the rest of your life will treat with Xarelto 15mg twice a day for 21 days then 20mg daily please follow up with Dr. Becerra in one week please be aware that you will be more prone to bleeding, bruising while on this medication Pending Studies at Discharge: No Stand-Alone Forms: [facility], Smoking Cessation Medications and DC Order Prescriptions: New Xarelto 15 mg Tablet 15 mg PO BID 21 Days Qty: 42 RF: 0 Xarelto 20 mg tablet 20 mg PO DAILY Qty: 30 RF: 3 Continued Proferrin ES 12 mg Tablet 12 mg PO DAILY RF: 0 multivitamin Tablet 1 tab PO DAILY RF: 0 celecoxib [Celebrex] 200 mg Capsule 200 mg PO BID RF: 0 ferrous sulfate [iron] 325 mg (65 mg iron) Tablet 325 mg PO DAILY RF: 0 levothyroxine [Synthroid] 125 mcg Tablet 125 mcg PO QAM RF: 0 glucosamine-chondroitin 500-400 mg Tablet 1 tab PO BID RF: 0 Proaxil 2 cap PO DAILY RF: 0 Vitamin D3 2,000 unit PO DAILY Qty: 0 RF: 0 Discharge Orders: Discharge Order (Routine); Ordered 07/11/19 Ordered By: Aaron Farah/Other Patient Handouts: Embolism Pulmonary, Rivaroxaban oral tablets Admission Data Admit Date/Time: 07/10/19 12:43 Attending Provider: Aaron Pascual Admit Provider: Aaron Pascual Primary Care Provider: Nathen Becerra Other Providers: Aaron Pascual Other Interventions: Discharge Summary Assessment (RN) Last Done: 07/11/19 08:31 DC Date/Time DO NOT enter until pt leaves facility: 07/11/19 09:30 Coding Level of Care Code D/C Day Management >30 mins Diagnoses Pulmonary embolism I26.99 Acute electrocardiogram changes R94.31 Hereditary hemorrhagic telangiectasia I78.0 Psoriasis L40.9 Psoriatic arthritis L40.50
== END 2019-07-11 09:30 | disposition home or self-care (01) | DRG 176 ==
LOC: ED 10:25 → 1E 12:43